=== PATIENT | female | born 1965 | race Caucasian/White ===

== ENCOUNTER 2019-10-31 21:51 | Observation (INO) | payer OTHER ==
[~2019-10-31] VITALS: Ht 160 cm; Wt 83.4 kg
[~2019-10-31 21:51] MED LIST: CARI350T PO; OXYC-307 PO; TRAM50TA2 PO
[2019-10-31] MEDS ORDERED: SODIUM CHLORIDE FLUSH 10ML SYR IVF ONE (22:00)
[2019-10-31] MEDS ORDERED: HYDROmorphone 1 MG/ML, 1ML INJ IVPush PRN (22:00)
[2019-10-31] MEDS ORDERED: NITROGLYCERIN SINGLE TAB 0.4 MG SL PRN (22:00)
[2019-10-31] MEDS ORDERED: NITROGLYCERIN SINGLE TAB 0.4 MG SL ONE (22:10)
[2019-10-31] MEDS ORDERED: HYDROmorphone 1 MG/ML, 1ML INJ ONE (22:33)
[2019-10-31 22:34] LABS: BASOPHILS # (AUTO) 0.02 x10^3/uL (0-0.1); BASOPHILS % (AUTO) 0 % (0-1); EOSINOPHILS # (AUTO) 0.11 x10^3/uL (0-0.4); EOSINOPHILS % (AUTO) 2 % (1-7); LYMPHOCYTES # (AUTO) 2.65 x10^3/uL (1-3.4); LYMPHOCYTES % (AUTO) 43 % (22-44); MD NO; MEAN CORPUSCULAR HEMOGLOBIN 31.1 pg (27.0-34.8); MEAN CORPUSCULAR HGB CONC 33.3 g/dL (32.4-35.8); MEAN CORPUSCULAR VOLUME 93.2 fL (80-100); MEAN PLATELET VOLUME 9.3 fL (7.4-10.4); MONOCYTES % (AUTO) 7 % (2-9); NEUTROPHILS # (AUTO) 2.94 x10^3/uL (1.8-6.8); NEUTROPHILS % (AUTO) 48 % (42-75); PLATELET COUNT 256 x10^3/uL (130-400); RED BLOOD COUNT 4.14 x10^6/uL (3.82-5.3)
[2019-10-31 22:38] LABS: ALBUMIN 4.2 g/dL (3.4-5.0); ANION GAP 6 mmol/L (5-15); CALCIUM 8.9 mg/dL (8.5-10.1); CHLORIDE 108 mmol/L (98-107)
[2019-10-31 22:43] LABS: ALANINE AMINOTRANSFERASE 27 U/L (12-78); ALKALINE PHOSPHATASE 86 U/L (45-117); BILIRUBIN,TOTAL 0.3 mg/dL (0.2-1.0); CREATININE 0.91 mg/dL (0.55-1.02); T4 (THYROXINE) 9.5 mcg/dL (4.8-13.9); TOTAL PROTEIN 7.2 g/dL (6.4-8.2); TROPONIN I < 0.015 ng/mL (0.000-0.045)
[2019-10-31] MEDS ORDERED: FREM225S SQ (23:10)
[2019-10-31] MEDS ORDERED: CELEBREX PO (23:10)
[2019-10-31] MEDS ORDERED: BUPR300T49 PO (23:10)
[2019-10-31] MEDS ORDERED: ESTR10TA PV (23:10)
[2019-10-31] MEDS ORDERED: BUPR-86 PO (23:10)
[2019-10-31] MEDS ORDERED: GABA600T7 PO (23:10)
--- NOTE | 2019-10-31 23:25 | NUR ---
Late entry: Patient BIB ambulance from work c/o right side CP radiating into jaw and back. Patient states the pain came on suddenly. Patient denies nausea or SOB. Per EMS, they admin 324 mg ASA and (1) Nitro. Patient's pain decreased from a 7/10 to a 4/10. Patient in obvious discomfort. Respirations even and unlabored.
--- NOTE | 2019-10-31 23:28 | NUR ---
Report given to NIKKIE Garibay. Patient to be transferred to room 503. Owen in room now.
[2019-10-31 23:44] VITALS: BP 143/83
[2019-10-31] MEDS: BUPROPRION 300 MG MC SCH (23:45)
[2019-10-31] MEDS ORDERED: NITROGLYCERIN 0.4 MG BOTTLE (25 TABS) SL ONE (23:47)
[2019-10-31] MEDS: NITROGLYCERIN 0.4 MG BOTTLE (25 TABS) SL PRN ×2 (23:52→23:59)
[2019-10-31] MEDS ORDERED: CELE50CA PO (23:57)
[2019-11-01] VITALS: BP 126/73
[2019-11-01] MEDS ORDERED: NITROGLYCERIN 0.4 MG/SPRAY SL PRN ×2
[2019-11-01] MEDS ORDERED: NITROGLYCERIN 0.4 MG BOTTLE (25 TABS) SL PRN
[2019-11-01] MEDS ORDERED: GABAPENTIN 300 MG CAPSULE PO PRN
[2019-11-01] MEDS ORDERED: HYDROmorphone 2 MG/ML, 1ML IVPush PRN
[2019-11-01] MEDS ORDERED: ACETAMINOPHEN 325 MG TABLET PO PRN
[2019-11-01 00:05] VITALS: BP 119/73
[2019-11-01 00:28] VITALS: BP 145/81
[2019-11-01 05:17] LABS: CHOL/HDL RATIO 3.1; CHOLESTEROL, TOTAL 177 mg/dL (140-239); HDL CHOL % 32 % (28-40); HDL CHOLESTEROL (DIRECT) 57 mg/dL (40-60); LDL CHOLESTEROL,CALCULATED 114 mg/dL (54-169); TRIGLYCERIDES 32 mg/dL (50-200); TROPONIN I < 0.015 ng/mL (0.000-0.045); VLDL CHOLESTEROL 6 mg/dL (0-25)
[2019-11-01 07:41] VITALS: BP 100/60
[2019-11-01] MEDS: BUPROPRION 300 MG MC SCH ×3 (08:01→22:44)
[2019-11-01] MEDS: ONDANSETRON 2MG/ML, 2ML IVPush PRN ×2 (08:21→16:57)
[2019-11-01] MEDS: BUPROPION HCL 300 MG PO SCH (09:00)
[2019-11-01] MEDS: PROMETHAZINE 25 MG/ML, 1ML IM PRN (09:56)
[2019-11-01] MEDS ORDERED: OMNIPAQUE 350 MG/ML, 100ML BOTTLE ONE (10:23)
[2019-11-01 10:26] LABS: TROPONIN I < 0.015 ng/mL (0.000-0.045)
[2019-11-01] MEDS: ASPIRIN 325 MG TABLET EC PO SCH (10:42)
[2019-11-01 12:24] VITALS: BP 121/75
[2019-11-01 19:13] VITALS: BP 107/69
[2019-11-01] MEDS ORDERED: ATORVASTATIN 40 MG TABLET PO SCH (21:00)
[2019-11-02 00:33] VITALS: BP 112/71
[2019-11-02] MEDS: ASPIRIN 325 MG TABLET EC PO SCH (05:27)
[2019-11-02 06:46] VITALS: BP 100/66
[2019-11-02] MEDS: BUPROPRION 300 MG MC SCH (07:45)
[2019-11-02] MEDS ORDERED: REGADENOSON 0.4 MG/5 ML SYRINGE ONE (07:57)
[2019-11-02] MEDS ORDERED: WELLBUTRIN 150 MG PO SCH (09:00)
[2019-11-02] MEDS: BUPROPION HCL 300 MG PO SCH (09:00)
[2019-11-02] MEDS ORDERED: GABAPENTIN 300 MG CAPSULE PO SCH (09:00)
[2019-11-02] MEDS ORDERED: CELEBREX PO SCH (09:00)
[2019-11-02] MEDS: PROMETHAZINE 25 MG/ML, 1ML IM PRN (09:54)
[2019-11-02] MEDS ORDERED: OMEP-110 PO (12:26)
[2019-11-02] MEDS ORDERED: ASPI-515 PO (12:26)
[2019-11-02] MEDS ORDERED: ONDA4TAB7 PO (12:37)
[2019-11-02 13:47] VITALS: BP 105/69
== END 2019-11-02 14:55 | disposition home or self-care (01) ==
LOC: ED 22:39 → EDIP 22:57 → INTOOBSV 22:57 → 5SO 23:36
PROVIDERS: ADMIT Family Medicine; ATTEND Internal Medicine
DX: R07.89 Other chest pain (principal); F41.9 Anxiety disorder, unspecified; K21.9 Gastro-esophageal reflux disease without esophagitis; F32.9 Major depressive disorder, single episode, unspecified; F19.10 Other psychoactive substance abuse, uncomplicated; R11.2 Nausea with vomiting, unspecified; R91.1 Solitary pulmonary nodule; G43.909 Migraine, unspecified, not intractable, without status migrainosus; I50.9 Heart failure, unspecified; Z87.891 Personal history of nicotine dependence; Z90.710 Acquired absence of both cervix and uterus; Z79.82 Long term (current) use of aspirin
CPT/HCPCS: 36415; 71045; 71275; 78452; 80053; 80061; 83735; 83880; 84436; 84443; 84484; 85025; 85379; 93005; 93017; 96372; 96374; 96375; 96376; 99285; A9502; G0378; J1170; J2405; J2550; J2785; Q9967